=== PATIENT | female | born 1960 | race Two or more races ===

== ENCOUNTER 2017-12-01 12:02 | Outpatient (CLI) | payer OTHER | END 2017-12-01 12:15 | disposition home or self-care (01) | LOC: SONOGRAMA 12:02 | DX: N60.11 Diffuse cystic mastopathy of right breast (principal); N60.12 Diffuse cystic mastopathy of left breast; N63.11 Unspecified lump in the right breast, upper outer quadrant ==

== ENCOUNTER 2018-01-05 05:30 | Day surgery (SDC) | payer OTHER ==
[~2018-01-05] VITALS: Ht 157.5 cm; Wt 60.3 kg
[~2018-01-05 05:30] MED LIST: SYNTHROID88 MCG PO
== END 2018-01-06 08:00 | disposition home or self-care (01) ==
LOC: CIR.AMB 05:30 → O/R 05:39 → SURH 05:39 → O/R 16:55 → CIR.AMB 01-06 08:00 → O/R 01-06 13:57 → SURH 01-06 13:57
DX: C50.411 Malignant neoplasm of upper-outer quadrant of right female breast (principal); Z90.11 Acquired absence of right breast and nipple

== ENCOUNTER 2018-02-23 05:59 | Day surgery (SDC) | payer OTHER ==
[~2018-02-23 05:59] MED LIST changes: +ANASTROZOLE1 MG PO; +SYNTHROID75 MCG
== END 2018-02-23 12:25 | disposition home or self-care (01) ==
LOC: CIR.AMB 05:59
DX: N65.1 Disproportion of reconstructed breast (principal); Z90.11 Acquired absence of right breast and nipple